=== PATIENT | male | born 1955 | race Caucasian/White ===

== ENCOUNTER 2025-02-12 11:46 | Emergency (ER) | payer MEDICARE, OTHER ==
[~2025-02-12] VITALS: Ht 172.7 cm; Wt 91.0 kg
[~2025-02-12 11:46] MED LIST: APIX5TAB MT; BUPR-46 PO; FOLI-43 PO; LEVO75TA7 PO; LISI20TA31 PO; METF-907 PO; PRAV40TA58 PO
[2025-02-12 11:52] VITALS: O2SAT 98
[2025-02-12] MEDS ORDERED: CEFU500T66 MT (14:31)
[2025-02-12] MEDS ORDERED: DOXY100C5 MT (14:31)
[2025-02-12 14:46] VITALS: BP 143/83; PULSE 78; RESP 16; TEMP 36.9; O2SAT 99
== END 2025-02-12 14:48 | disposition home or self-care (01) ==
LOC: ER 11:46
DX: L76.22 Postprocedural hemorrhage of skin and subcutaneous tissue following other procedure (principal); I10 Essential (primary) hypertension; E11.9 Type 2 diabetes mellitus without complications; I25.10 Atherosclerotic heart disease of native coronary artery without angina pectoris; I48.91 Unspecified atrial fibrillation; Z79.899 Other long term (current) drug therapy; Z79.890 Hormone replacement therapy; Z79.84 Long term (current) use of oral hypoglycemic drugs; Z79.01 Long term (current) use of anticoagulants; Z55.6 Problems related to health literacy; Z88.1 Allergy status to other antibiotic agents
CPT/HCPCS: 99283

== ENCOUNTER 2025-02-15 12:35 | Emergency (ER) | payer OTHER ==
[~2025-02-15] VITALS: Ht 162.6 cm; Wt 92.0 kg
[~2025-02-15 12:35] MED LIST changes: +CEFU500T66 MT; +DOXY100C5 MT
[2025-02-15 12:42] VITALS: TEMP 36.7; O2SAT 99
[2025-02-15 17:59] LABS: BASOPHILS % 0.8 % (0.0-2.0); EOSINOPHILS % 3.1 % (0.0-5.0); HEMATOCRIT. 38.7 % (42.0-52.0); HEMOGLOBIN. 12.5 g/dL (14.0-18.0); LYMPHOCYTES % 27.1 % (20.0-50.0); MEAN PLATELET VOLUME 7.1 fl (7.4-10.4); MONOCYTES % 5.3 % (2.0-8.0); NEUTROPHILS % 63.7 % (40.0-76.0); PLATELET 329 x1000/uL (130-400); RED BLOOD CELL COUNT 4.15 mill/uL (4.7-6.1); RED CELL DISTRIBUTION WIDTH 15.5 % (11.6-14.6)
[2025-02-15 18:09] LABS: CREATININE 1.3 mg/dL (0.6-1.3); UREA NITROGEN BLOOD 30.0 mg/dL (9-23)
[2025-02-15 18:20] VITALS: BP 146/75; PULSE 63; RESP 16; O2SAT 100
== END 2025-02-15 18:27 | disposition home or self-care (01) ==
LOC: ER 12:50
DX: L76.22 Postprocedural hemorrhage of skin and subcutaneous tissue following other procedure (principal); E11.9 Type 2 diabetes mellitus without complications; Z79.899 Other long term (current) drug therapy; Z88.1 Allergy status to other antibiotic agents
CPT/HCPCS: 36415; 71045; 80048; 85025; 99284